=== PATIENT | female | born 1955 | race Caucasian/White ===

== ENCOUNTER 2017-06-15 10:35 | Emergency (ER) | payer OTHER ==
[~2017-06-15] VITALS: Ht 157.5 cm; Wt 81.6 kg
[2017-06-15 10:35] VITALS: BP_SYST 167
[2017-06-15] MEDS ORDERED: LIDOCAINE 1% 10 MG/ML, 20 ML MDV IJ ONE (10:45)
[2017-06-15] MEDS ORDERED: LIDOCAINE 1%, 20 ML MDV 20 ML ONE (10:45)
[2017-06-15] MEDS: DIPH-TET-PERTUS Vaccine 0.5 ML VIAL (ADACEL) IM ONE (11:17)
[2017-06-15] MEDS: BACITRACIN 1 GM OINT TP ONE (11:45)
[2017-06-15 11:46] VITALS: BP_SYST 151
== END 2017-06-15 11:46 | disposition home or self-care (01) ==
LOC: SED 10:35
DX: S61.012A Laceration without foreign body of left thumb without damage to nail, initial encounter (principal); W45.8XXA Other foreign body or object entering through skin, initial encounter; Y93.89 Activity, other specified; Y92.89 Other specified places as the place of occurrence of the external cause; Y99.8 Other external cause status
CPT/HCPCS: 12001; 90471; 90715; 99283; J2001

== ENCOUNTER 2018-02-08 08:26 | Emergency (ER) | payer OTHER ==
[~2018-02-08] VITALS: Ht 154.9 cm; Wt 93.4 kg
[2018-02-08 08:28] VITALS: BP_SYST 166
[2018-02-08] MEDS ORDERED: IBUPROFEN 800 MG TABLET PO ONE (08:45)
[2018-02-08] MEDS ORDERED: METOPROLOL TARTRATE 25 MG TABLET PO ONE (08:45)
[2018-02-08 09:39] LABS: BASOPHILS # (AUTO) 0.1 K/uL (0.0-0.2); BASOPHILS % (AUTO) 0.7 % (0.0-2.0); EOSINOPHILS # (AUTO) 0.1 K/uL (0.0-0.4); EOSINOPHILS % (AUTO) 1.6 % (0.0-4.0); HEMATOCRIT 44.6 % (36-48); HEMOGLOBIN 14.8 g/dL (12.0-16.0); LYMPHOCYTES # (AUTO) 2.3 K/uL (1.0-5.5); LYMPHOCYTES % (AUTO) 29.1 % (20.5-51.5); MEAN CORPUSCULAR HEMOGLOBIN 29 pg (27-31); MEAN CORPUSCULAR HGB CONC 33 % (32-36); MEAN CORPUSCULAR VOLUME 89 fL (79.0-98.0); MONOCYTES # (AUTO) 0.5 K/uL (0.0-1.0); MONOCYTES % (AUTO) 6.6 % (1.7-9.3); PLATELET COUNT (AUTO) 356 K/uL (130-430); RED BLOOD CELL COUNT(AUTO) 5.03 MIL/uL (4.2-6.2); RED CELL DISTRIBUTION WIDTH 12.4 % (9.0-15.0)
[2018-02-08 09:51] VITALS: BP_SYST 188
[2018-02-08 10:02] LABS: ALANINE AMINOTRANSFERASE 19 U/L (12-78); ALBUMIN 3.9 g/dL (3.4-4.8); ASPARTATE AMINOTRANSFERASE 17 U/L (10-37); CALCIUM 9.9 mg/dL (8.4-11.0); GLUCOSE 117 mg/dL (70-99); POTASSIUM 4.6 mmol/L (3.5-5.1); TOTAL BILIRUBIN 0.3 mg/dL (0.0-1.0); UREA NITROGEN, BLOOD 16 mg/dL (8-21)
[2018-02-08 10:03] LABS: GFR AFRICAN AMERICAN 131 mL/min (>90)
[2018-02-08 10:09] LABS: CHLORIDE 104 mmol/L (98-107)
[2018-02-08 10:16] LABS: ANION GAP 5 (5-15); SODIUM SERUM 141 mmol/L (136-145)
== END 2018-02-08 09:10 | disposition home or self-care (01) ==
LOC: SED 08:26
DX: S40.011A Contusion of right shoulder, initial encounter (principal); S60.221A Contusion of right hand, initial encounter; S80.01XA Contusion of right knee, initial encounter; R51 Headache; I10 Essential (primary) hypertension; W19.XXXA Unspecified fall, initial encounter; Y93.89 Activity, other specified; Y92.89 Other specified places as the place of occurrence of the external cause; Y99.8 Other external cause status
CPT/HCPCS: 36415; 73030; 73564; 80053; 84484; 85025; 93005; 99285

== ENCOUNTER 2022-12-20 09:18 | Emergency (ER) | payer OTHER ==
[~2022-12-20] VITALS: Ht 167.6 cm; Wt 69.9 kg
[2022-12-20 09:20] VITALS: BP_SYST 172
[2022-12-20] MEDS ORDERED: KETOROLAC TROMETHAMINE 30 MG VIAL IVP ONE (09:30)
[2022-12-20] MEDS ORDERED: LABETALOL HCL 20 MG/4 ML CARTRIDGE IVP ONE (11:00)
[2022-12-20] MEDS ORDERED: NAPR-1172 PO (11:37)
[2022-12-20 12:22] VITALS: BP_SYST 152
== END 2022-12-20 12:18 | disposition home or self-care (01) ==
LOC: SED 09:18
DX: S16.1XXA Strain of muscle, fascia and tendon at neck level, initial encounter (principal); S09.90XA Unspecified injury of head, initial encounter; M25.552 Pain in left hip; I10 Essential (primary) hypertension; Z79.899 Other long term (current) drug therapy; W19.XXXA Unspecified fall, initial encounter; Y93.89 Activity, other specified; Y92.89 Other specified places as the place of occurrence of the external cause; Y99.8 Other external cause status
CPT/HCPCS: 99285; 70450; 96374; 96375; 72125; 72192; 76376; J1885